=== PATIENT | male | born 1945 | race Caucasian/White ===

== ENCOUNTER 2024-01-19 20:00 | Inpatient (IN) | payer MEDICARE ==
[~2024-01-19 20:00] MED LIST: Iopamidol-370 76% 500 ML MDV (1 ML CHARGE) ONE
[2024-01-19 20:14] LABS: Actual Bicarbonate (HCO3a) 16.5 mEq/L (22-28); Analyzer IN Cardio ER; Base Excess (BEa) -9.6 mEq/L (-2.0 to +3.0); CO2 Tension 36.9 mmHg (35.0-45.0); Calcium, Ionized (arterial) 1.16 mmol/L (1.12-1.30); Carboxyhemoglobin (COHb) 0.1 gm% (0.0-3.0); Hematocrit-ABG 31 % (42.0-52.0); Hemoglobin (Hb) 10.6 g/dL (14.0-18.0); O2 Tension (PaO2), arterial 225.6 mmHg (> 70.0); Potassium - ABG Lab 3.42 mmol/L (3.70-5.30); pH, Arterial 7.269 (7.35-7.45)
[2024-01-19] MEDS ORDERED: Fentanyl CADD 100 ML IV SCH ×2 (20:15→22:30)
[2024-01-19 20:32] LABS: #Basophils 0.04 10x3/uL (0.0-0.2); %Basophils 0.3 % (0.0-1.0); %Eosinophils 0.9 % (0.0-10.0); %Lymphocytes 8.7 % (21.0-51.0); %Monocytes 5.3 % (0.0-10.0); Hematocrit 35.8 % (42.0-52.0); Hemoglobin 11.4 g/dL (14.0-18.0); Mean Corpuscular HGB CONC 31.8 g/dL (32.0-36.0); Mean Corpuscular Hemoglobin 29.2 pg (27.0-31.0); Mean Corpuscular Volume 91.6 fL (78.0-98.0); Mean Platelet Volume 10.6 fL (7.4-10.4); Platelet Count 422 10x3/uL (130-400); Red Blood Cell (RBC) Count 3.91 mill/uL (4.70-6.10)
[2024-01-19 20:48] LABS: INR-International Normal Ratio 1.2; Prothrombin Time 14.8 sec (12.0-14.7)
[2024-01-19 20:50] LABS: ALT (SGPT) 26 U/L (8-55); AST (SGOT) 32 U/L (5-34); Albumin 2.8 g/dL (3.4-4.8); Alkaline Phosphatase 161 U/L (40-110); Anion Gap 14 mmol/L (10-20); BUN (Urea Nitrogen) 24 mg/dL (8.4-25.7); Bilirubin, Total 0.5 mg/dL (0.2-1.2); Calc. Creatinine Clearance 0 mL/min (70-130); Calcium 8.3 mg/dL (7.8-10.44); Carbon Dioxide 16 mmol/L (23-31); Chloride 112 mmol/L (98-107); Estimated GFR 55; Globulin 4.1 g/dL (2.4-3.5); Glucose 223 mg/dL (83-110); Potassium 3.8 mmol/L (3.5-5.1); Protein, Total 6.9 g/dL (5.8-8.1); Sodium 138 mmol/L (136-145)
[2024-01-19 20:55] LABS: Troponin I 0.174 ng/mL (< 0.028)
[2024-01-19] MEDS ORDERED: Sodium Chloride 0.9% 100 ML ONE (21:02)
[2024-01-19] MEDS ORDERED: LevoFLOXacin 750 mg/D5W 150 ml Premix Bag ONE (21:02)
[2024-01-19] MEDS ORDERED: Cefepime 2 GM VIAL ONE (21:02)
[2024-01-19 21:33] LABS: Bacteria/HPF None Seen HPF (None Seen); Bilirubin Negative (Negative); Blood, Urine Negative (Negative); CAUTI Indications for Culture Alt mental st,lethar; Clarity Clear (Clear); Glucose, Urine (Dipstick) 500 mg/dL (Negative); Ketone, Urine Negative (Negative); Leukocyte Negative Leu/uL (Negative); Nitrite Negative (Negative); Protein, Urine (Dipstick) Negative (Neg-Trace); RBC/HPF None Seen HPF (0-3); Specific Gravity, Urine 1.016 (1.002-1.036); Squamous Epithelial None Seen HPF (0-3); Urobilinogen Normal mg/dL (Less than 2); WBC/HPF 0-3 HPF (0-3); pH, Urine 5.5 (5.0-9.0)
[2024-01-19 21:36] LABS: Urine Culture Reflex No No
[2024-01-19] MEDS ORDERED: Enoxaparin 60 MG (0.6 mL) SYRINGE ONE (21:46)
[2024-01-19] MEDS ORDERED: Propofol 1,000 MG/100 ML VIAL IV ONE (22:08)
[2024-01-19] MEDS ORDERED: Electrolyte Replacement Protocol IVPB SCH (22:12)
[2024-01-19] MEDS ORDERED: Acetaminophen 650 MG Suppository PR PRN ×2 (22:12→22:17)
[2024-01-19] MEDS ORDERED: Ondansetron PF 4 MG/2 ML Vial IVP PRN (22:12)
[2024-01-19] MEDS ORDERED: Acetaminophen 325 MG (10.15 ML) UDCUP PO PRN (22:12)
[2024-01-19] MEDS ORDERED: Ventilator Sedation Protocol 1 EACH FS SCH (22:15)
[2024-01-19] MEDS ORDERED: hydrALAZINE 20 MG/ML VIAL SLOW IVP PRN (22:24)
[2024-01-19] MEDS ORDERED: Propofol BOLUS 1,000 MG/100 ML VIAL IV PRN (22:30)
[2024-01-19] MEDS ORDERED: Morphine 2 MG/ML VIAL SLOW IVP PRN (22:30)
[2024-01-19] MEDS ORDERED: Fentanyl BOLUS 250 ML IVPB PRN (22:30)
[2024-01-19] MEDS ORDERED: DISCONTINUE PREVIOUS NARCOTIC PAIN MEDICATIONS AND BENZODIAZEPINES FS SCH (22:30)
[2024-01-19] MEDS ORDERED: Propofol 1,000 MG/100 ML VIAL IV PRN (22:30)
[2024-01-19] MEDS ORDERED: Dextrose 5% in Water 1,000 ML IV PRN (22:43)
[2024-01-19] MEDS ORDERED: Glucagon 1 MG/ML KIT IM PRN (22:43)
[2024-01-19] MEDS ORDERED: Insulin Lispro 100 UNIT/ML 10 ML VIAL SC PRN (22:43)
[2024-01-19] MEDS ORDERED: Dextrose 50% Abboject 50 ML SYRINGE SLOW IVP PRN (22:43)
[2024-01-19] MEDS: Vancomycin (BATCH) 1.5 GM in Premix 1 BAG IVPB SCH (23:36)
[2024-01-19] MEDS: Lorazepam 2 MG/ML VIAL SLOW IVP PRN (23:37)
[2024-01-19 23:44] LABS: ALV-art Gradient 84.775 mmHg (0-20); Puncture Site Left Radial artery
[2024-01-19 23:51] LABS: Actual Bicarbonate (HCO3a) 16.2 mEq/L (22-28); Base Excess (BEa) -9.6 mEq/L (-2.0 to +3.0); CO2 Tension 34.9 mmHg (35.0-45.0); Calcium, Ionized (arterial) 1.12 mmol/L (1.12-1.30); Carboxyhemoglobin (COHb) 0.8 gm% (0.0-3.0); Hematocrit-ABG 31 % (42.0-52.0); Hemoglobin (Hb) 10.5 g/dL (14.0-18.0); O2 Tension (PaO2), arterial 86.7 mmHg (> 70.0); Potassium - ABG Lab 4.11 mmol/L (3.70-5.30); pH, Arterial 7.284 (7.35-7.45)
[2024-01-19 23:52] LABS: Puncture Site Left Radial artery
[2024-01-19 23:53] LABS: ALV-art Gradient 154.875 mmHg (0-20)
[2024-01-19] MEDS: Lactated Ringer's 1,000 ML IV SCH (23:58)
[2024-01-20 00:04] LABS: Troponin I 0.124 ng/mL (< 0.028)
[2024-01-20 01:02] LABS: Legionella Urinary Ag Negative (Negative); Strep pneumo Urine Ag NEGATIVE (NEGATIVE)
[2024-01-20] MEDS: Ventilator Sedation Protocol 1 EACH FS ONE (02:52)
[2024-01-20 04:13] LABS: #Basophils Less than 0.03 10x3/uL (0.0-0.2); #Eosinphils Less than 0.03 10x3/uL (0.0-0.7); %Basophils 0.1 % (0.0-1.0); %Lymphocytes 7.9 % (21.0-51.0); %Monocytes 6.5 % (0.0-10.0); %Neutrophils 84.8 % (42.0-75.0); Hematocrit 26.9 % (42.0-52.0); Hemoglobin 8.2 g/dL (14.0-18.0); Mean Corpuscular HGB CONC 30.5 g/dL (32.0-36.0); Mean Corpuscular Hemoglobin 28.7 pg (27.0-31.0); Mean Corpuscular Volume 94.1 fL (78.0-98.0); Platelet Count 309 10x3/uL (130-400); Red Blood Cell (RBC) Count 2.86 mill/uL (4.70-6.10)
[2024-01-20 04:23] LABS: ALT (SGPT) 21 U/L (8-55); AST (SGOT) 21 U/L (5-34); Albumin 2.2 g/dL (3.4-4.8); Alkaline Phosphatase 126 U/L (40-110); Anion Gap 12 mmol/L (10-20); BUN (Urea Nitrogen) 23 mg/dL (8.4-25.7); Bilirubin, Total 0.3 mg/dL (0.2-1.2); Calc. Creatinine Clearance 42 mL/min (70-130); Calcium 7.4 mg/dL (7.8-10.44); Carbon Dioxide 17 mmol/L (23-31); Chloride 115 mmol/L (98-107); Estimated GFR 59; Globulin 2.6 g/dL (2.4-3.5); Glucose 174 mg/dL (83-110); Potassium 4.3 mmol/L (3.5-5.1); Protein, Total 4.8 g/dL (5.8-8.1); Sodium 140 mmol/L (136-145)
[2024-01-20 04:24] LABS: Vancomycin, Random 18.2 ug/mL (See Comment)
[2024-01-20 04:38] LABS: Troponin I 0.124 ng/mL (< 0.028)
[2024-01-20] MEDS ORDERED: Heparin 25,000 units/D5W 500 ML IVPB SCH (07:00)
[2024-01-20 07:10] LABS: Hematocrit 27.8 % (42.0-52.0); Hemoglobin 8.7 g/dL (14.0-18.0); Platelet Count 320 10x3/uL (130-400)
[2024-01-20] MEDS: Cefepime 2 GM in Sodium Chloride 0.9% 100 ML IVPB SCH (08:47)
[2024-01-20] MEDS: Heparin 25,000 units/D5W 500 ML IVPB SCH (08:48)
[2024-01-20] MEDS ORDERED: LevoFLOXacin 500 mg/D5W 500 MG in Premix 1 BAG IVPB SCH (09:00)
[2024-01-20] MEDS ORDERED: Vancomycin 1.5 GM in Sodium Chloride 0.9% 250 ML 300 ML IVPB SCH ×2 (09:00→21:00)
[2024-01-20] MEDS ORDERED: Vancomycin 1 GM in Premix 1 BAG IVPB SCH (09:00)
[2024-01-20] MEDS: Famotidine/PF 20 mg/2ml Vial SLOW IVP SCH (09:05)
[2024-01-20] MEDS ORDERED: Dexmedetomidine In 0.9 % NaCl 100 ML IV SCH (11:00)
[2024-01-20] MEDS: Labetalol HCl 100 MG/20 ML VIAL SLOW IVP PRN (11:49)
[2024-01-20] MEDS ORDERED: Vancomycin (BATCH) 1.25 GM in Premix 1 BAG IVPB SCH (12:00)
[2024-01-20] MEDS: Vancomycin (BATCH) 1.25 GM in Premix 1 BAG IVPB SCH (13:06)
[2024-01-20] MEDS: hydrALAZINE 20 MG/ML VIAL SLOW IVP PRN (14:43)
[2024-01-20] MEDS: Amlodipine 10 MG TAB PER TUBE SCH (16:21)
[2024-01-20] MEDS: Metoprolol Tartrate 25 MG TAB PER TUBE SCH ×2 (16:22→20:39)
[2024-01-20] MEDS: niCARdipine 25 MG in Sodium Chloride 0.9% 250 ML 250 ML IVPB SCH (19:49)
[2024-01-20 20:03] LABS: Actual Bicarbonate (HCO3v) 18.5 mEq/L (22-28); Calcium, Ionized (venous) 1.16 mmol/L (1.16-1.32); Chloride (VBG) 112 mmol/L (98-106); Hematocrit-VBG 28 % (42.0-52.0); Hemoglobin (Hb) 9.5 g/dL (12.6-17.4); Potassium (VBG) 3.37 mmol/L (3.70-5.30); Sodium 140 mmol/L (133-146); pH (venous) 7.423 (7.32-7.43)
[2024-01-20 20:08] LABS: #Basophils 0.04 10x3/uL (0.0-0.2); %Basophils 0.3 % (0.0-1.0); %Lymphocytes 9.4 % (21.0-51.0); %Neutrophils 79.8 % (42.0-75.0); Hematocrit 27.1 % (42.0-52.0); Hemoglobin 8.6 g/dL (14.0-18.0); Mean Corpuscular HGB CONC 31.7 g/dL (32.0-36.0); Mean Corpuscular Hemoglobin 29.4 pg (27.0-31.0); Mean Corpuscular Volume 92.5 fL (78.0-98.0); Mean Platelet Volume 10.8 fL (7.4-10.4); Platelet Count 305 10x3/uL (130-400); RBC Distribution Width 13.8 % (11.5-14.5); Red Blood Cell (RBC) Count 2.93 mill/uL (4.70-6.10)
[2024-01-20 20:17] LABS: Lactic Acid 1.21 mmol/L (0.5-2.2)
[2024-01-20 20:21] LABS: ALT (SGPT) 16 U/L (8-55); AST (SGOT) 17 U/L (5-34); Albumin 2.3 g/dL (3.4-4.8); Alkaline Phosphatase 126 U/L (40-110); Anion Gap 12 mmol/L (10-20); BUN (Urea Nitrogen) 22 mg/dL (8.4-25.7); Bilirubin, Total 0.4 mg/dL (0.2-1.2); Calc. Creatinine Clearance 38 mL/min (70-130); Calcium 8.3 mg/dL (7.8-10.44); Carbon Dioxide 17 mmol/L (23-31); Chloride 114 mmol/L (98-107); Estimated GFR 52; Globulin 3.2 g/dL (2.4-3.5); Glucose 123 mg/dL (83-110); Potassium 3.3 mmol/L (3.5-5.1); Protein, Total 5.5 g/dL (5.8-8.1); Sodium 140 mmol/L (136-145)
[2024-01-20] MEDS: DC Sedation Protocol FS ONE (21:26)
[2024-01-20] MEDS: Furosemide 40 MG (4 mL) VIAL SLOW IVP SCH (21:39)
[2024-01-20] MEDS: Ampicillin/Sulbactam 1.5 GM in Sodium Chloride 0.9% 100 ML IVPB SCH ×2 (22:15→22:34)
[2024-01-20] MEDS: Dexmedetomidine In 0.9 % NaCl 100 ML IV SCH (23:53)
[2024-01-20] MEDS: Potassium Chloride 20 MEQ in Premix 1 BAG IVPB SCH (23:53)
[2024-01-21] MEDS ORDERED: OLANZapine 10 MG VIAL IM SCH (00:30)
[2024-01-21] MEDS: OLANZapine 10 MG VIAL IM SCH (00:31)
[2024-01-21] MEDS: Sterile Water 10 ML VIAL FS SCH (00:31)
[2024-01-21 05:07] LABS: #Basophils 0.05 10x3/uL (0.0-0.2); %Basophils 0.4 % (0.0-1.0); %Eosinophils 1.4 % (0.0-10.0); %Lymphocytes 12.6 % (21.0-51.0); %Monocytes 11.2 % (0.0-10.0); %Neutrophils 73.7 % (42.0-75.0); Hematocrit 26.1 % (42.0-52.0); Hemoglobin 8.3 g/dL (14.0-18.0); Mean Corpuscular HGB CONC 31.8 g/dL (32.0-36.0); Mean Corpuscular Hemoglobin 29.3 pg (27.0-31.0); Mean Corpuscular Volume 92.2 fL (78.0-98.0); Mean Platelet Volume 11.1 fL (7.4-10.4); Platelet Count 295 10x3/uL (130-400); RBC Distribution Width 13.9 % (11.5-14.5); Red Blood Cell (RBC) Count 2.83 mill/uL (4.70-6.10)
[2024-01-21 05:22] LABS: Vancomycin, Random 17.6 ug/mL (See Comment)
[2024-01-21 05:25] LABS: ALT (SGPT) 15 U/L (8-55); AST (SGOT) 15 U/L (5-34); Albumin 2.2 g/dL (3.4-4.8); Alkaline Phosphatase 118 U/L (40-110); Anion Gap 12 mmol/L (10-20); BUN (Urea Nitrogen) 21 mg/dL (8.4-25.7); Bilirubin, Total 0.4 mg/dL (0.2-1.2); Calc. Creatinine Clearance 36 mL/min (70-130); Calcium 8.2 mg/dL (7.8-10.44); Carbon Dioxide 20 mmol/L (23-31); Chloride 111 mmol/L (98-107); Estimated GFR 49; Globulin 3.2 g/dL (2.4-3.5); Glucose 172 mg/dL (83-110); Potassium 3.4 mmol/L (3.5-5.1); Protein, Total 5.4 g/dL (5.8-8.1); Sodium 140 mmol/L (136-145)
[2024-01-21] MEDS ORDERED: Heparin 10,000 UNITS/ 10 ML VIAL SLOW IVP SCH (07:00)
[2024-01-21] MEDS: Potassium Chloride 20 MEQ in Premix 1 BAG IVPB SCH (08:42)
[2024-01-21] MEDS: Amlodipine 10 MG TAB PER TUBE SCH (08:42)
[2024-01-21] MEDS: Apixaban 5 MG TAB PO SCH (10:27)
[2024-01-21] MEDS: Insulin Lispro 100 UNIT/ML 10 ML VIAL SC PRN (12:12)
[2024-01-21] MEDS ORDERED: LevoFLOXacin 750 mg/D5W 750 MG in Premix 1 BAG IVPB SCH (21:00)
[2024-01-22 04:27] LABS: #Basophils 0.04 10x3/uL (0.0-0.2); %Basophils 0.4 % (0.0-1.0); %Eosinophils 3.9 % (0.0-10.0); %Lymphocytes 11.2 % (21.0-51.0); %Monocytes 8.8 % (0.0-10.0); %Neutrophils 75.1 % (42.0-75.0); Hematocrit 26.9 % (42.0-52.0); Hemoglobin 8.7 g/dL (14.0-18.0); Mean Corpuscular HGB CONC 32.3 g/dL (32.0-36.0); Mean Corpuscular Hemoglobin 29.8 pg (27.0-31.0); Mean Corpuscular Volume 92.1 fL (78.0-98.0); Mean Platelet Volume 10.9 fL (7.4-10.4); Platelet Count 285 10x3/uL (130-400); RBC Distribution Width 13.7 % (11.5-14.5); Red Blood Cell (RBC) Count 2.92 mill/uL (4.70-6.10)
[2024-01-22 04:42] LABS: ALT (SGPT) 12 U/L (8-55); AST (SGOT) 14 U/L (5-34); Albumin 2.1 g/dL (3.4-4.8); Alkaline Phosphatase 107 U/L (40-110); Anion Gap 13 mmol/L (10-20); BUN (Urea Nitrogen) 25 mg/dL (8.4-25.7); Bilirubin, Total 0.3 mg/dL (0.2-1.2); Calc. Creatinine Clearance 44 mL/min (70-130); Calcium 8.2 mg/dL (7.8-10.44); Carbon Dioxide 19 mmol/L (23-31); Chloride 114 mmol/L (98-107); Estimated GFR 65; Globulin 3.2 g/dL (2.4-3.5); Glucose 196 mg/dL (83-110); Potassium 3.6 mmol/L (3.5-5.1); Protein, Total 5.3 g/dL (5.8-8.1); Sodium 142 mmol/L (136-145)
[2024-01-22] MEDS: Morphine 2 MG/ML VIAL SLOW IVP SCH (07:38)
[2024-01-22] MEDS: Furosemide 20 MG (2 mL) VIAL SLOW IVP SCH (07:44)
[2024-01-22] MEDS: Glycopyrrolate 0.2 MG/ML 5 ML SYRINGE SLOW IVP SCH (10:26)
[2024-01-22] MEDS: Morphine 4 MG/ML VIAL ONE (14:15)
[2024-01-22] MEDS ORDERED: Acetaminophen 325 MG (10.15 ML) UDCUP PER TUBE PRN (20:41)
[2024-01-22] MEDS: Metoprolol Tartrate 25 MG TAB PO SCH (20:54)
[2024-01-22] MEDS: Apixaban 5 MG TAB PO SCH (20:54)
[2024-01-22] MEDS ORDERED: Apixaban 5 MG TAB PER TUBE SCH (21:00)
[2024-01-22] MEDS ORDERED: Sterile Water 10 ML VIAL FS PRN (23:00)
[2024-01-22] MEDS: OLANZapine 10 MG VIAL IM SCH (23:26)
[2024-01-23 04:32] LABS: #Basophils 0.05 10x3/uL (0.0-0.2); %Basophils 0.5 % (0.0-1.0); %Lymphocytes 11.9 % (21.0-51.0); %Monocytes 9.2 % (0.0-10.0); %Neutrophils 74.8 % (42.0-75.0); Hemoglobin 8.8 g/dL (14.0-18.0); Mean Corpuscular HGB CONC 31.4 g/dL (32.0-36.0); Mean Corpuscular Hemoglobin 29.2 pg (27.0-31.0); Mean Platelet Volume 11.2 fL (7.4-10.4); Platelet Count 285 10x3/uL (130-400); Red Blood Cell (RBC) Count 3.01 mill/uL (4.70-6.10)
[2024-01-23 04:58] LABS: ALT (SGPT) 12 U/L (8-55); AST (SGOT) 17 U/L (5-34); Albumin 2.2 g/dL (3.4-4.8); Alkaline Phosphatase 111 U/L (40-110); Anion Gap 16 mmol/L (10-20); BUN (Urea Nitrogen) 33 mg/dL (8.4-25.7); Bilirubin, Total 0.5 mg/dL (0.2-1.2); Calc. Creatinine Clearance 40 mL/min (70-130); Calcium 8.5 mg/dL (7.8-10.44); Carbon Dioxide 19 mmol/L (23-31); Chloride 115 mmol/L (98-107); Estimated GFR 55; Globulin 3.3 g/dL (2.4-3.5); Glucose 129 mg/dL (83-110); Potassium 3.6 mmol/L (3.5-5.1); Protein, Total 5.5 g/dL (5.8-8.1); Sodium 146 mmol/L (136-145)
[2024-01-23] MEDS: Amlodipine 10 MG TAB PO SCH (09:26)
[2024-01-23] MEDS: Sertraline 100 MG TAB PO SCH (12:57)
[2024-01-23] MEDS: Donepezil HCl 5 MG TAB PO SCH (21:55)
[2024-01-23] MEDS: Apixaban 5 MG TAB PO SCH (21:55)
[2024-01-24 04:28] LABS: #Basophils 0.05 10x3/uL (0.0-0.2); %Basophils 0.5 % (0.0-1.0); %Eosinophils 4.1 % (0.0-10.0); %Lymphocytes 13.5 % (21.0-51.0); %Monocytes 9.4 % (0.0-10.0); %Neutrophils 71.8 % (42.0-75.0); Hematocrit 28.6 % (42.0-52.0); Hemoglobin 8.8 g/dL (14.0-18.0); Mean Corpuscular HGB CONC 30.8 g/dL (32.0-36.0); Mean Corpuscular Hemoglobin 27.9 pg (27.0-31.0); Mean Corpuscular Volume 90.8 fL (78.0-98.0); Mean Platelet Volume 11.4 fL (7.4-10.4); Platelet Count 300 10x3/uL (130-400); RBC Distribution Width 14.1 % (11.5-14.5); Red Blood Cell (RBC) Count 3.15 mill/uL (4.70-6.10)
[2024-01-24 04:43] LABS: ALT (SGPT) 14 U/L (8-55); AST (SGOT) 16 U/L (5-34); Albumin 2.1 g/dL (3.4-4.8); Alkaline Phosphatase 111 U/L (40-110); Anion Gap 15 mmol/L (10-20); BUN (Urea Nitrogen) 32 mg/dL (8.4-25.7); Bilirubin, Total 0.5 mg/dL (0.2-1.2); Calc. Creatinine Clearance 46 mL/min (70-130); Calcium 8.4 mg/dL (7.8-10.44); Carbon Dioxide 19 mmol/L (23-31); Chloride 118 mmol/L (98-107); Estimated GFR 65; Globulin 3.3 g/dL (2.4-3.5); Glucose 158 mg/dL (83-110); Potassium 3.7 mmol/L (3.5-5.1); Protein, Total 5.4 g/dL (5.8-8.1); Sodium 148 mmol/L (136-145)
[2024-01-24] MEDS: Famotidine 20 MG TAB PO SCH (08:33)
[2024-01-24] MEDS: Sertraline 100 MG TAB PO SCH (08:33)
[2024-01-24] MEDS ORDERED: Glycopyrrolate 0.4 MG/ 2 ML VIAL SLOW IVP SCH (09:00)
[2024-01-25 04:41] LABS: #Basophils 0.07 10x3/uL (0.0-0.2); %Basophils 0.7 % (0.0-1.0); %Eosinophils 2.8 % (0.0-10.0); %Lymphocytes 13.7 % (21.0-51.0); %Monocytes 8.1 % (0.0-10.0); Hematocrit 28.4 % (42.0-52.0); Hemoglobin 8.7 g/dL (14.0-18.0); Mean Corpuscular HGB CONC 30.6 g/dL (32.0-36.0); Mean Corpuscular Hemoglobin 28.6 pg (27.0-31.0); Mean Corpuscular Volume 93.4 fL (78.0-98.0); Mean Platelet Volume 11.4 fL (7.4-10.4); Platelet Count 298 10x3/uL (130-400); RBC Distribution Width 14.1 % (11.5-14.5); Red Blood Cell (RBC) Count 3.04 mill/uL (4.70-6.10)
[2024-01-25 05:01] LABS: ALT (SGPT) 17 U/L (8-55); AST (SGOT) 22 U/L (5-34); Albumin 2.2 g/dL (3.4-4.8); Alkaline Phosphatase 108 U/L (40-110); Anion Gap 13 mmol/L (10-20); BUN (Urea Nitrogen) 26 mg/dL (8.4-25.7); Bilirubin, Total 0.5 mg/dL (0.2-1.2); Calc. Creatinine Clearance 50 mL/min (70-130); Calcium 8.3 mg/dL (7.8-10.44); Carbon Dioxide 20 mmol/L (23-31); Chloride 119 mmol/L (98-107); Estimated GFR 75; Globulin 3.2 g/dL (2.4-3.5); Glucose 128 mg/dL (83-110); Potassium 3.1 mmol/L (3.5-5.1); Protein, Total 5.4 g/dL (5.8-8.1); Sodium 149 mmol/L (136-145)
[2024-01-25] MEDS: Potassium Chloride 20 MEQ TAB PO SCH (05:53)
[2024-01-25] MEDS: Dextrose 5% in Water 1,000 ML IV SCH (10:06)
[2024-01-25 12:25] LABS: Potassium 3.8 mmol/L (3.5-5.1)
[2024-01-25] MEDS: Melatonin 3 MG TAB PO SCH (21:36)
[2024-01-25] MEDS: Acetaminophen 650 MG/20.3 ML UDCUP PER TUBE PRN (21:36)
[2024-01-26 06:53] LABS: #Basophils 0.06 10x3/uL (0.0-0.2); %Basophils 0.5 % (0.0-1.0); %Eosinophils 3.6 % (0.0-10.0); %Lymphocytes 15.2 % (21.0-51.0); %Monocytes 6.8 % (0.0-10.0); Hematocrit 30.2 % (42.0-52.0); Hemoglobin 9.3 g/dL (14.0-18.0); Mean Corpuscular HGB CONC 30.8 g/dL (32.0-36.0); Mean Corpuscular Hemoglobin 28.4 pg (27.0-31.0); Mean Corpuscular Volume 92.4 fL (78.0-98.0); Mean Platelet Volume 11.3 fL (7.4-10.4); Platelet Count 301 10x3/uL (130-400); RBC Distribution Width 13.9 % (11.5-14.5); Red Blood Cell (RBC) Count 3.27 mill/uL (4.70-6.10)
[2024-01-26 07:02] LABS: ALT (SGPT) 17 U/L (8-55); AST (SGOT) 20 U/L (5-34); Albumin 2.3 g/dL (3.4-4.8); Alkaline Phosphatase 117 U/L (40-110); Anion Gap 13 mmol/L (10-20); BUN (Urea Nitrogen) 22 mg/dL (8.4-25.7); Bilirubin, Total 0.5 mg/dL (0.2-1.2); Calc. Creatinine Clearance 49 mL/min (70-130); Calcium 8.5 mg/dL (7.8-10.44); Carbon Dioxide 20 mmol/L (23-31); Chloride 118 mmol/L (98-107); Estimated GFR 75; Globulin 3.4 g/dL (2.4-3.5); Glucose 151 mg/dL (83-110); Potassium 3.5 mmol/L (3.5-5.1); Protein, Total 5.7 g/dL (5.8-8.1); Sodium 147 mmol/L (136-145)
[2024-01-26] MEDS: Potassium Bicarbonate/Cit Ac 20 MEQ TAB PO SCH (10:15)
[2024-01-26] MEDS: Ferrous Sulfate 325 MG TAB PO SCH (16:54)
[2024-01-26] MEDS: Ascorbic Acid 500 mg Chewable Tablet PO SCH (16:54)
[2024-01-26] MEDS ORDERED: Donepezil HCl 10 MG TAB PO SCH (21:00)
[2024-01-26] MEDS: Megestrol Acetate 800 MG/20 ML UDCUP PO SCH (22:35)
[2024-01-26] MEDS: Thiamine 100 MG TAB PO SCH (22:36)
[2024-01-26] MEDS: Atorvastatin Calcium 40 MG TAB PO SCH (22:36)
[2024-01-26] MEDS: Folic Acid 1 MG TAB PO SCH (22:37)
[2024-01-27 04:46] LABS: Anion Gap 13 mmol/L (10-20); BUN (Urea Nitrogen) 23 mg/dL (8.4-25.7); Calc. Creatinine Clearance 45 mL/min (70-130); Calcium 8.4 mg/dL (7.8-10.44); Carbon Dioxide 20 mmol/L (23-31); Chloride 118 mmol/L (98-107); Estimated GFR 68; Glucose 148 mg/dL (83-110); Potassium 4.1 mmol/L (3.5-5.1); Sodium 147 mmol/L (136-145)
[2024-01-27] MEDS ORDERED: Sertraline 100 MG TAB PO SCH (09:00)
[2024-01-27] MEDS ORDERED: Metoprolol Tartrate 25 MG TAB PO SCH (09:00)
[2024-01-27] MEDS: Cyanocobalamin (Vitamin B-12) 1,000 MCG TAB PO SCH (12:31)
[2024-01-27] MEDS: Aspirin 81 mg Enteric Coated Tablet PO SCH (12:32)
[2024-01-27] MEDS: Pantoprazole DR 40 MG TAB PO SCH (12:32)
[2024-01-27] MEDS: Ipratropium/Albuterol 3 ML NEB NEB PRN (13:11)
[2024-01-27 14:57] LABS: Actual Bicarbonate (HCO3a) 22.5 mEq/L (22-28); Base Excess (BEa) 0.2 mEq/L (-2.0 to +3.0); CO2 Tension 29.5 mmHg (35.0-45.0); Calcium, Ionized (arterial) 1.19 mmol/L (1.12-1.30); Carboxyhemoglobin (COHb) 0.7 gm% (0.0-3.0); Hematocrit-ABG 36 % (42.0-52.0); Hemoglobin (Hb) 12.1 g/dL (14.0-18.0); Potassium - ABG Lab 3.45 mmol/L (3.70-5.30)
[2024-01-27 14:59] LABS: Puncture Site Right Brachial art
[2024-01-27] MEDS: Furosemide 20 MG (2 mL) VIAL SLOW IVP SCH ×2 (15:23→20:18)
[2024-01-27] MEDS: traZODone HCl 50 MG TAB PO SCH (20:28)
[2024-01-28 04:10] VITALS: BMI 17.4
[2024-01-28] MEDS: Furosemide 20 MG (2 mL) VIAL SLOW IVP SCH (05:19)
[2024-01-28 05:42] LABS: Anion Gap 14 mmol/L (10-20); BUN (Urea Nitrogen) 25 mg/dL (8.4-25.7); Calc. Creatinine Clearance 41 mL/min (70-130); Calcium 8.5 mg/dL (7.8-10.44); Carbon Dioxide 23 mmol/L (23-31); Chloride 115 mmol/L (98-107); Estimated GFR 59; Glucose 139 mg/dL (83-110); Sodium 149 mmol/L (136-145)
[2024-01-28] MEDS: Potassium Bicarbonate/Cit Ac 20 MEQ TAB PO SCH (08:56)
[2024-01-28] MEDS: Apixaban 5 MG TAB PO SCH (08:56)
[2024-01-28] MEDS: Sodium Chloride 0.65% Nasal 44 ML BOT EA NARE PRN (14:20)
[2024-01-29 06:27] LABS: Anion Gap 13 mmol/L (10-20); BUN (Urea Nitrogen) 27 mg/dL (8.4-25.7); Calc. Creatinine Clearance 42 mL/min (70-130); Calcium 8.2 mg/dL (7.8-10.44); Carbon Dioxide 25 mmol/L (23-31); Chloride 112 mmol/L (98-107); Estimated GFR 61; Glucose 115 mg/dL (83-110); Potassium 3.3 mmol/L (3.5-5.1); Sodium 147 mmol/L (136-145)
[2024-01-29] MEDS: Potassium Bicarbonate/Cit Ac 20 MEQ TAB PO SCH (09:46)
[2024-01-29] MEDS: Furosemide 20 MG (2 mL) VIAL SLOW IVP SCH (10:03)
[2024-01-29 18:44] LABS: Hematocrit 30.9 % (42.0-52.0); Hemoglobin 9.6 g/dL (14.0-18.0)
[2024-01-29] MEDS: Pantoprazole DR 40 MG TAB PO SCH (20:52)
[2024-01-30] MEDS: Acetaminophen 500 MG TAB PO PRN (06:03)
[2024-01-30 08:04] LABS: Hematocrit 29.6 % (42.0-52.0); Hemoglobin 9.3 g/dL (14.0-18.0); Platelet Count 243 10x3/uL (130-400)
[2024-01-30 08:31] LABS: Anion Gap 13 mmol/L (10-20); BUN (Urea Nitrogen) 29 mg/dL (8.4-25.7); Calc. Creatinine Clearance 41 mL/min (70-130); Calcium 8.4 mg/dL (7.8-10.44); Carbon Dioxide 25 mmol/L (23-31); Chloride 109 mmol/L (98-107); Estimated GFR 59; Glucose 118 mg/dL (83-110); Potassium 3.5 mmol/L (3.5-5.1); Sodium 143 mmol/L (136-145)
[2024-01-30] MEDS: Potassium Chloride 20 MEQ TAB PO SCH (10:11)
[2024-01-30 16:55] LABS: Hematocrit 30.6 % (42.0-52.0); Hemoglobin 9.3 g/dL (14.0-18.0)
[2024-01-31 08:47] LABS: Hematocrit 30.5 % (42.0-52.0); Hemoglobin 9.5 g/dL (14.0-18.0)
[2024-01-31] MEDS: Tamsulosin HCl 0.4 MG CAP PO SCH (08:48)
[2024-01-31 09:55] VITALS: BMI 17.4
[2024-01-31] MEDS: Cefdinir 300 MG CAP PO SCH (20:39)
[2024-02-01 16:11] VITALS: BP 149/55; TEMP 98.7
== END 2024-02-01 16:12 | DRG 208 ==
LOC: ERS 20:00 → CCU 20:06 → T4-B 01-25 12:59
PROVIDERS: ADMIT Student in an Organized Health Care Education/Training Program; ATTEND Family Medicine
PROC: 4A133R1 Monitoring of Arterial Saturation, Peripheral, Percutaneous Approach (ICD-10-PCS; principal; 2024-01-19)
PROC: 5A1935Z Respiratory Ventilation, Less than 24 Consecutive Hours (ICD-10-PCS; 2024-01-19)
PROC: 5A09357 Assistance with Respiratory Ventilation, Less than 24 Consecutive Hours, Continuous Positive Airway Pressure (ICD-10-PCS; 2024-01-22)
PROC: 5A0935A Assistance with Respiratory Ventilation, Less than 24 Consecutive Hours, High Flow/Velocity Cannula (ICD-10-PCS; 2024-01-22)
DX: I26.09 Other pulmonary embolism with acute cor pulmonale (principal); G93.41 Metabolic encephalopathy; I21.4 Non-ST elevation (NSTEMI) myocardial infarction; J96.01 Acute respiratory failure with hypoxia; J69.0 Pneumonitis due to inhalation of food and vomit; A41.9 Sepsis, unspecified organism; E87.20 Acidosis, unspecified; N17.9 Acute kidney failure, unspecified; Z79.899 Other long term (current) drug therapy; E78.5 Hyperlipidemia, unspecified; I10 Essential (primary) hypertension; E11.9 Type 2 diabetes mellitus without complications; F41.9 Anxiety disorder, unspecified; F32.A Depression, unspecified; Z87.891 Personal history of nicotine dependence; Z98.41 Cataract extraction status, right eye; Z98.42 Cataract extraction status, left eye; F03.90 Unspecified dementia, unspecified severity, without behavioral disturbance, psychotic disturbance, mood disturbance, and anxiety; Z79.01 Long term (current) use of anticoagulants; Z79.82 Long term (current) use of aspirin
CPT/HCPCS: 36415; 36416; 36600; 70450; 71045; 71275; 74018; 80048; 80053; 80202; 81001; 82274; 82805; 83605; 83880; 84145; 84484; 85014; 85018; 85025; 85049; 85610; 85730; 87040; 87449; 87899; 93005; 93010; 93306; 93970; 94002; 94003; 94640; 94660; 96365; 96366; 96367; 96368; 96372; 99292; J0295; J0360; J0692; J1644; J1650; J1815; J1940; J1956; J2060; J2272; J2704; J3010; J3370; J3480; J3490; J7050; J7070; J7120; J7620; Q9967